=== PATIENT | female | born 1975 | race Caucasian/White ===

== ENCOUNTER 2017-07-04 13:15 | Emergency (ER) | payer MEDICAID ==
[~2017-07-04] VITALS: Ht 167.6 cm; Wt 95.9 kg
[2017-07-04] MEDS ORDERED: DEPA500T2 PO (13:33)
[2017-07-04] MEDS ORDERED: GABA-282 PO (13:33)
[2017-07-04] MEDS ORDERED: CITA40TA4 PO (13:33)
[2017-07-04 13:45] VITALS: BP 113/71
--- NOTE | 2017-07-04 16:03 | REP ---
Head CT without contrast: History: Trauma to the posterior head. Comparison study: No comparison study. CT findings: Bone window settings demonstrate an intact bony calvarium. There is no evidence of skull fracture or incidental bony calvarial lesion. The visualized paranasal sinuses appear clear. No intraorbital abnormality is seen. On soft tissue window setting images; the lateral, third, and fourth ventricles are normal in size and position. Aviles-white differentiation pattern is normal above and below the tentorium. There are is no evidence of intracranial hemorrhage. No mass, edema, infarction, or midline shift is seen. No extra-axial fluid collection is appreciated. Impression: Negative noncontrast head CT. Signed by Davon Zuniga MD 07/04/2017 03:54 P
--- NOTE | 2017-07-04 16:55 | REP ---
CT study of the cervical spine without contrast: History: Trauma to the posterior head. Technique: Helical scanning is acquired and overlapping 2 mm high resolution axial images were generated and reviewed at bone and soft tissue window settings. Coronal and sagittal multiplanar re-formations images are generated. CT findings: There is straightening of the normal cervical lordosis. Minimal discogenic spurring is seen at C4-5 and C5-6. There is no evidence of cervical spine element fracture. No skull base fracture is seen. Cervical vertebral body heights are preserved. Alignment is normal. Facet joints are normally aligned bilaterally at each cervical level on multiplanar re-formations images. There is no evidence of intraspinal or paraspinal hematoma. No extra vertebral abnormality is seen. Impression: Minimal degenerative disc disease C4-5 and C5-6, straightening, otherwise negative CT study of the cervical spine without contrast. No fracture seen. Signed by Davon Zuniga MD 07/05/2017 08:16 A
[2017-07-04] MEDS ORDERED: NORCO, ANEXSIA 5/325MG TABLET (HYDROcodone/ACETAMINOPHEN) PO ONE (17:15)
[2017-07-05] MEDS ORDERED: COMBAER6 INH (10:45)
[2017-07-05] MEDS ORDERED: KEFL500C17 PO (11:05)
[2017-07-05] MEDS ORDERED: PROAAER10 INH (11:05)
== END 2017-07-04 18:46 | disposition home or self-care (01) ==
LOC: M ED 13:15 → EDBD 13:15 → M ED 18:46
DX: S06.0X9A Concussion with loss of consciousness of unspecified duration, initial encounter (principal); Y04.8XXA Assault by other bodily force, initial encounter; Y92.9 Unspecified place or not applicable; Y93.9 Activity, unspecified; Y99.9 Unspecified external cause status; M50.321 Other cervical disc degeneration at C4-C5 level; M50.322 Other cervical disc degeneration at C5-C6 level; Z79.899 Other long term (current) drug therapy; Z88.0 Allergy status to penicillin

== ENCOUNTER 2017-07-05 10:10 | Emergency (ER) | payer MEDICAID ==
[~2017-07-05] VITALS: Ht 167.6 cm; Wt 44.8 kg
[~2017-07-05 10:10] MED LIST: CITA40TA4 PO; DEPA500T2 PO; GABA-282 PO
[2017-07-05 10:12] VITALS: BP 126/67
[2017-07-05] MEDS ORDERED: COMBAER6 INH (10:45)
[2017-07-05] MEDS ORDERED: PROAAER10 INH (11:05)
[2017-07-05] MEDS ORDERED: KEFL500C17 PO (11:05)
--- NOTE | 2017-07-05 11:13 | ED PDOC ---
Post-Departure Follow-Up Pt has passed out several times in the past, each time some form of blood draw or visualized blood has been associated with these episodes. Pt denies chest pain shortness of breath or dizziness at visit or remotely. Jesús Harrison Jul 05, 2017 11:13
== END 2017-07-05 11:37 | disposition home or self-care (01) ==
LOC: M ED 10:10 → EDBD 10:10 → M ED 11:37
DX: J45.40 Moderate persistent asthma, uncomplicated (principal); J45.20 Mild intermittent asthma, uncomplicated; F32.9 Major depressive disorder, single episode, unspecified; Z87.442 Personal history of urinary calculi; Z90.721 Acquired absence of ovaries, unilateral; Z79.899 Other long term (current) drug therapy; Z88.0 Allergy status to penicillin

== ENCOUNTER 2017-07-05 19:19 | Emergency (ER) | payer MEDICAID ==
[~2017-07-05] VITALS: Ht 167.6 cm; Wt 95.9 kg
[~2017-07-05 19:19] MED LIST changes: +COMBAER6 INH; +KEFL500C17 PO; +PROAAER10 INH
[2017-07-05 19:32] VITALS: BP 121/58
[2017-07-05] MEDS ORDERED: KETOROLAC 30 MG/ML VIAL (J1885) IM ONE (21:00)
--- NOTE | 2017-07-08 07:24 | REPUSA ---
CT of the head Clinical history: Headache. Technique: Multiple axial CT images were obtained through the head without administration of contrast . Comparison: 07/04/2017. Findings: The ventricles and sulci are symmetric bilaterally. There is no evidence of acute hemorrhag e or infarct. There is no midline shift, mass effect, or extra-axial fluid collection. The osseous st ructures are unremarkable. The visualized paranasal sinuses and mastoid air cells are clear. Impression: Negative study.
--- NOTE | 2017-07-08 07:25 | REPUSA ---
CT of the thoracic spine without contrast Clinical history: Pain. Technique: Multiple axial CT images were obtained through the thoracic spine without administration o f contrast. Coronal and sagittal 3-D reconstructed images were also obtained. Findings: The vertebral bodies are in satisfactory positioning. There is mild levoscoliosis noted. No fractures or dislocations are demonstrated. Intervertebral disc spaces are well-maintained. There is no eviden ce of facet subluxation. The neural foramen appear grossly patent. The spinal canal demonstrates norm al caliber and contour without evidence of spinal stenosis. The surrounding soft tissues are within n ormal limits. Impression: No acute traumatic injury. Mild levoscoliosis.
--- NOTE | 2017-07-08 07:25 | REPUSA ---
CT of the cervical spine Clinical history: Pain. Technique: Multiple axial CT images were obtained through the cervical spine without administration o f contrast. Coronal and sagittal 3-D reconstructed images were also obtained. Comparison: None. Findings: The cervical vertebral bodies are in satisfactory positioning and alignment. No fractures or dislocat ions are demonstrated. The odontoid process is intact. Intervertebral disc spaces are well-maintained . There is no evidence of facet subluxation. The neural foramen appear grossly patent. The cervical c ranial junction is intact. The cervical spinal canal demonstrates normal caliber and contour without evidence of spinal stenosis. The surrounding soft tissues are within normal limits. Impression: Unremarkable CT examination of the cervical spine.
== END 2017-07-05 21:52 | disposition home or self-care (01) ==
LOC: M ED 19:19 → EDBD 19:19 → M ED 21:52
DX: S20.229A Contusion of unspecified back wall of thorax, initial encounter (principal); W00.9XXA Unspecified fall due to ice and snow, initial encounter; Y92.410 Unspecified street and highway as the place of occurrence of the external cause; Y93.9 Activity, unspecified; Y99.9 Unspecified external cause status; J45.909 Unspecified asthma, uncomplicated; F41.9 Anxiety disorder, unspecified; F32.9 Major depressive disorder, single episode, unspecified; Z87.442 Personal history of urinary calculi; M41.84 Other forms of scoliosis, thoracic region; Z79.899 Other long term (current) drug therapy; Z88.0 Allergy status to penicillin
CPT/HCPCS: 70450; 72125; 72128; 96374; 99283; J1885

== ENCOUNTER 2017-07-07 14:08 | Emergency (ER) | payer MEDICAID ==
[~2017-07-07] VITALS: Ht 167.6 cm; Wt 95.7 kg
[2017-07-07] MEDS: NS 1,000 ML IV SCH ×2 (16:01→19:48)
--- NOTE | 2017-07-07 16:05 | REP ---
Portable chest, three, 30 p.m., single AP view, patient sitting: There are no comparisons. The lung melendrez are clear. The cardiac size is normal. The jesus, mediastinum, and bony thorax are unremarkable. Impression: Negative portable chest. Signed by Gael Ruiz MD 07/07/2017 03:57 P
[2017-07-07 16:10] LABS: BASO # 0.1 10^3/uL (0.0-0.2); BASO % 0.9 % (0.0-1.0); EOS % 0.8 % (0.0-3.0); IMMATURE GRANULOCYTE % 0.4 % (0-0); LYMPH # 1.7 10^3/uL (1.5-4.5); LYMPH % 31.6 % (24.0-44.0); MEAN CORPUSCULAR HEMOGLOBIN 30.6 pg (27.0-33.0); MEAN CORPUSCULAR HGB CONC 34.1 g/dl (32.0-36.5); MEAN CORPUSCULAR VOLUME 89.8 fl (80.0-96.0); MONO # 0.5 10^3/uL (0.0-0.8); MONO % 10.2 % (0.0-5.0); NEUTROPHILS % 56.1 % (36.0-66.0); PLATELET COUNT, AUTOMATED 277 10^3/uL (150-450); RED CELL DISTRIBUTION WIDTH 13.2 % (11.5-14.5); WHITE BLOOD COUNT 5.3 10^3/uL (4.0-10.0)
[2017-07-07 16:25] LABS: INR 1.02
[2017-07-07 16:31] LABS: METHADONE URINE NEGATIVE (NEGATIVE)
[2017-07-07] MEDS ORDERED: ISOVUE-370 76% 100ML VIAL (Q9967) As Ordered ONE (16:32)
[2017-07-07 16:33] LABS: ANION GAP 6 MEQ/L (8-16); BLOOD UREA NITROGEN 11 MG/DL (7-18); CALCIUM LEVEL 8.6 MG/DL (8.5-10.1); CARBON DIOXIDE LEVEL 28 MEQ/L (21-32); CHLORIDE LEVEL 104 MEQ/L (98-107); CREATININE FOR GFR 0.82 MG/DL (0.55-1.02); FREE T4 0.95 NG/DL (0.76-1.46); GLOMERULAR FILTRATION RATE > 60.0 (>60); GLUCOSE, FASTING 101 MG/DL (70-105); POTASSIUM SERUM 3.9 MEQ/L (3.5-5.1); SODIUM LEVEL 138 MEQ/L (136-145)
--- NOTE | 2017-07-07 17:06 | REP ---
CT of the abdomen and pelvis with IV contrast, without bowel contrast: There are no comparisons. The visualized lung melendrez are unremarkable. The hepatic parenchyma, gallbladder, pancreas and spleen are unremarkable. The adrenals are unremarkable. The right kidney is unremarkable. There is focal renal cortical atrophy in the upper pole left kidney, possibly sequela of prior pyelonephritis. The left kidney is otherwise unremarkable. The abdominal aorta is unremarkable. There is no bowel distension or obstruction. No ascites. There is mild wall thickening of the cecum and ascending colon. This is compatible with colitis in the appropriate clinical setting. There is descending colon and sigmoid colon diverticulosis without diverticulitis. Pelvis: The uterus is unremarkable. There are surgical clips in the right adnexa. The left adnexa and bladder are unremarkable. There is no ascites or adenopathy. Impression: Wall thickening of the cecum and ascending colon compatible with colitis in the appropriate clinical setting. Diverticulosis without diverticulitis. 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 Surgical clips in the right adnexa. No bowel distension, ascites or adenopathy. Signed by Gael Ruiz MD 07/07/2017 04:57 P
[2017-07-07] MEDS ORDERED: MECLIZINE 25 MG TABLET PO ONE (17:45)
--- NOTE | 2017-07-07 19:45 | ECGEPIP ---
Stationary ECG Study 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
[2017-07-07 20:12] VITALS: BP 116/57
[2017-07-07] MEDS ORDERED: ACETAMINOPHEN TAB 650MG DOSE (2X325MG) PO ONE (20:15)
== END 2017-07-07 20:59 | disposition home or self-care (01) ==
LOC: M ED 14:08 → EDBD 14:08 → M ED 20:59
DX: R55 Syncope and collapse (principal); J45.909 Unspecified asthma, uncomplicated; F31.9 Bipolar disorder, unspecified; Z59.0 Homelessness; K57.30 Diverticulosis of large intestine without perforation or abscess without bleeding; Z79.899 Other long term (current) drug therapy; Z88.0 Allergy status to penicillin
CPT/HCPCS: 71010; 74177; 80048; 80307; 81001; 82550; 82553; 83605; 83735; 84439; 84443; 85025; 85610; 85730; 86140; 93005; 93041; 94760; 99285; G0480; Q9967